=== PATIENT | male | born 1965 | race Caucasian/White ===

== ENCOUNTER 2021-06-19 15:51 | Outpatient (REF) | payer BC, SELFPAY ==
--- NOTE | ~2021-06-19 | CT_ITS ---
EXAMINATION: CT SINUS WITHOUT CONTRAST CLINICAL INFORMATION: Nasal polyps, deviated septum. COMPARISON: None TECHNIQUE: 2 mm thin axial and reformatted 2 mm thin coronal and sagittal images of sinuses were obtained. This CT examination was performed using dose optimization techniques as appropriate, variously including the following: *Automated exposure control *Adjustment of mA and/or kV according to patient size (this includes techniques or standardized protocols for targeted exams where dose is matched to indication/reason for exam; i.e. extremities or head) *Use of iterative reconstruction technique DLP: 97 mGy-cm FINDINGS: FRONTAL SINUSES AND DRAINAGE PATHWAYS: There is mucoperiosteal thickening left frontal sinus with mild mucosal thickening obstructing bilateral frontoethmoidal recess. MAXILLARY SINUSES AND DRAINAGE PATHWAYS: There is mild mucoperiosteal thickening bilateral maxillary sinuses with patent bilateral ostiomeatal complex. ETHMOID SINUSES: Normal. The ethmoid roofs are symmetric, with olfactory fossa depth of 0.36 on the right and 0.38 on the left. SPHENOID SINUSES AND DRAINAGE PATHWAYS: Mild mucoperiosteal thickening left sphenoid sinus. The sphenoid ostia appear patent bilaterally. The carotid canals are covered by bone. NASAL CAVITY/NASOPHARYNX: The nasal cavity is clear. There is no nasal septal deviation/spurring. The nasopharynx is symmetric. ADDITIONAL RELEVANT FINDINGS: The TMJs articulate normally. The orbits and skull base soft tissues are unremarkable. The middle ear cavities and mastoid air cells are clear. Limited evaluation demonstrates no acute intracranial findings. CT/CT sinus wo con IMPRESSION: Bilateral ethmoid, maxillary, left sphenoid and left frontal sinus mucosal thickening consistent with chronic inflammatory changes. There is obstructed bilateral frontoethmoidal recess. Bilateral ostiomeatal complex and sphenoid ostia are patent.
== END 2021-06-19 15:52 | disposition home or self-care (01) ==
LOC: HO.CT 15:51
PROVIDERS: Visit Provider Otolaryngology
DX: J33.9 Nasal polyp, unspecified (principal); J34.2 Deviated nasal septum
CPT/HCPCS: 70486